=== PATIENT | female | born 1985 | race Caucasian/White ===

== ENCOUNTER 2018-08-09 01:24 | Emergency (ER) | payer MEDICAID, OTHER ==
[~2018-08-09] VITALS: Ht 182.9 cm; Wt 83.0 kg
[~2018-08-09 01:24] MED LIST: CYCL-1 PO; ONDA8TAB9 PO
[2018-08-09 01:31] VITALS: BP 136/83
--- NOTE | 2018-08-09 01:44 | NUR ---
PT ASKED STAFF WHERE BATHROOM WAS, STAFF DIRECTED PT TO BATHROOM, PT WENT OUT TO LOBBY TO GO INTO SAME BATHROOM BOYFRIEND
--- NOTE | 2018-08-09 02:24 | NUR ---
PT LEFT ED AFTER COMING OUT OF BATHROOM WITH BOYFRIEND
== END 2018-08-09 02:26 | disposition left against medical advice (07) ==
LOC: ER 01:25
DX: M79.10 Myalgia, unspecified site (principal); Z53.21 Procedure and treatment not carried out due to patient leaving prior to being seen by health care provider